=== PATIENT | male | born 1955 | race Caucasian/White ===

== ENCOUNTER 2019-08-12 15:14 | Emergency (ER) | payer OTHER ==
[2019-08-12] MEDS ORDERED: BENZONATATE 100 MG CAP PO ONE (15:56)
[2019-08-12] MEDS ORDERED: NA CHLORIDE 0.9% 1,000 ML ONE (15:56)
[2019-08-12] MEDS ORDERED: IPRATROPIUM BROM 0.5MG/2.5ML ONE (15:56)
[2019-08-12] MEDS ORDERED: ALBUTEROL 2.5 MG/3 ML NEB SOL ONE (15:56)
[2019-08-12 16:15] LABS: Absolute Lymphocytes (CBC) 1.6 K/uL (0.7-4.9); Basophils % 0.3 % (0-1.3); Hematocrit 43.3 % (39.6-49.0); Lymphocytes % 16.8 % (15.3-44.8); MPV 8.7 fL (7.6-11.3); RBC Red Blood Cell Count 4.76 M/uL (4.33-5.43)
[2019-08-12 16:21] LABS: Protime INR 0.89
--- NOTE | 2019-08-12 16:49 | RAD REPORT ---
EXAM DESCRIPTION: RAD - Chest Pa And Lat (2 Views) - 08/12/2019 4:40 pm CLINICAL HISTORY: Cough;Chest pain Chest pain. COMPARISON: <Comparisons> FINDINGS: The lungs are emphysematous but clear. The heart is upper limit of normal in size. No disp laced fractures. IMPRESSION: Mild COPD.
[2019-08-12 16:51] LABS: ALT/SGPT 39 U/L (12-78); AST/SGOT 20 U/L (15-37); Albumin 3.7 g/dL (3.4-5.0); Alkaline Phosphatase 94 U/L (45-117); BUN Blood Urea Nitrogen 28 mg/dL (7-18); Bicarbonate 29 mmol/L (21-32); Bilirubin Direct 0.1 mg/dL (0-0.2); Bilirubin Total 0.3 mg/dL (0.2-1.0); Glucose Level 97 mg/dL (74-106); NT PRO-BNP 24 pg/mL (<125); Potassium 4.1 mmol/L (3.5-5.1); Protein, Total 6.6 g/dL (6.4-8.2); Sodium Level 143 mmol/L (136-145); Troponin (Emerg Dept Use Only) < 0.02 ng/mL (0.0-0.045)
--- NOTE | 2019-08-12 17:01 | ER ---
Nurse's Notes [facility] Name: Steven Barraza Age: 63 yrs Sex: Male : 1955 Arrival Date: 08/12/2019 Time: 15:16 Bed 26 Private MD: Unknown, Unknown Diagnosis: Chronic obstructive pulmonary disease with acute lower respiratory infection Presentation: 08/12 15:18 Presenting complaint: Productive cough with yellow mucus, pain with cough, and sinus hb congestion x 3 weeks, SOB and worsening cough over last 2 days. Transition of care: patient was not received from another setting of care. Onset of symptoms was July 2019. Risk Assessment: Do you want to hurt yourself or someone else? Patient reports no desire to harm self or others. Initial Sepsis Screen: Does the patient meet any 2 criteria? No. Patient's initial sepsis screen is negative. Does the patient have a suspected source of infection? No. Patient's initial sepsis screen is negative. Care prior to arrival: None. 15:18 Method Of Arrival: Ambulatory hb 15:18 Acuity: JUAN MANUEL 3 hb Historical: - Allergies: 15:22 No Known Allergies; hb - Home Meds: 15:22 None [Active]; hb - PMHx: 15:22 None; hb - PSHx: 15:22 None; hb - Immunization history:: Adult Immunizations up to date. - Social history:: Smoking status: Patient/guardian denies using tobacco. - Ebola Screening: : No symptoms or risks identified at this time. Screenin:00 Abuse screen: Denies threats or abuse. Denies injuries from another. Nutritional mg2 screening: No deficits noted. Tuberculosis screening: No symptoms or risk factors identified. Fall Risk IV access (20 points). Assessment: 16:07 General: Appears in no apparent distress. comfortable, Behavior is calm, cooperative. mg2 Pain: Complains of pain in chest Pain does not radiate. Pain currently is 3 out of 10 on a pain scale. Quality of pain is described as aching, Pain began gradually, 1 month ago. Neuro: Level of Consciousness is awake, alert, obeys commands, Oriented to person, place, time, situation. Cardiovascular: Capillary refill < 3 seconds Patient's skin is warm and dry. Respiratory: Reports cough that is Airway is patent Respiratory effort is even, unlabored, Respiratory pattern is regular, symmetrical. GI: No signs and/or symptoms were reported involving the gastrointestinal system. : No signs and/or symptoms were reported regarding the genitourinary system. EENT: No signs and/or symptoms were reported regarding the EENT system. Derm: Skin is intact, is healthy with good turgor, Skin is pink, warm \T\ dry. normal. Musculoskeletal: Circulation, motion, and sensation intact. Capillary refill < 3 seconds. 17:28 Reassessment: Patient appears in no apparent distress at this time. Patient is alert, mg2 oriented x 3, equal unlabored respirations, skin warm/dry/pink. Patient states feeling better. Vital Signs: 15:21 BP 169 / 79; Pulse 102; Resp 20; Temp 97.9; Pulse Ox 100% on R/A; Weight 77.11 kg; hb Height 5 ft. 5 in. (165.10 cm); Pain 5/10; 16:30 BP 141 / 72; Pulse 100; Resp 18; Temp 98; Pulse Ox 100% on R/A; mg2 16:30 BP 140 / 78; Pulse 101; Resp 18; Temp 98; Pulse Ox 100% on R/A; Pain 0/10; mg2 15:21 Body Mass Index 28.29 (77.11 kg, 165.10 cm) hb ED Course: 15:16 Patient arrived in ED. as 15:17 Unknown, Unknown is Private Physician. as 15:20 Triage completed. hb 15:21 Arm band placed on. hb 15:22 Arpit Johnson PA is PHCP. cp 15:22 Venkatesh Ngo MD is Attending Physician. cp 15:28 Garrison Farley, MILEY is Primary Nurse. mg2 15:36 EKG done, by piano technician. reviewed by Arpit ENGLE. sm3 16:00 No provider procedures requiring assistance completed. Inserted saline lock: 20 gauge mg2 in right forearm, using aseptic technique. Blood collected. Patient maintains SpO2 saturation greater than 95% on room air. 16:16 Patient has correct armband on for positive identification. monitoring and evaluation advisor on. Pulse mg2 ox on. Door closed. Warm blanket given. 16:42 XRAY Chest Pa And Lat (2 Views) In Process Unspecified. EDMS 17:28 IV discontinued, intact, bleeding controlled, No redness/swelling at site. Pressure mg2 dressing applied. Administered Medications: 16:05 Drug: Tessalon Perle 200 mg Route: PO; mg2 17:08 Follow up: Response: No adverse reaction; Marked relief of symptoms mg2 16:05 Drug: NS 0.9% 1000 ml Route: IV; Rate: 1000 ml/hr; Site: right forearm; mg2 17:08 Follow up: Response: No adverse reaction; IV Status: Completed infusion; IV Intake: mg2 1000ml 16:06 Drug: Albuterol - atroVENT (3:1) (2.5 mg - 0.5 mg) 3 ml Route: Nebulizer; mg2 17:09 Follow up: Response: No adverse reaction mg2 Intake: 17:08 IV: 1000ml; Total: 1000ml. mg2 Outcome: 17:00 Discharge ordered by MD. cp 17:28 Discharged to home ambulatory. mg2 17:28 Condition: stable 17:28 Discharge instructions given to patient, Instructed on discharge instructions, follow up and referral plans. medication usage, Demonstrated understanding of instructions, follow-up care, medications, Prescriptions given X 3. 17:29 Patient left the ED. mg2 Signatures: Dispatcher [employer] EDMS Didi Mchugh as Arpit Johnson PA PA cp Corine Peacock, MILEY RN Garrison Arteaga RN RN mg2 Tami Dasilva sm3 Corrections: (The following items were deleted from the chart) 15:21 15:18 Presenting complaint: Productive cough with yellow mucus, pain with cough, and hb sinus congestin x 3 weeks, worse over last 2 days. hb
--- NOTE | 2019-08-12 17:01 | EDPHYS ---
Physician Documentation [facility] Name: Steven Barraza Age: 63 yrs Sex: Male : 1955 Arrival Date: 08/12/2019 Time: 15:16 Bed 26 Private MD: Unknown, Unknown ED Physician Venkatesh Ngo HPI: 08/12 15:45 This 63 yrs old Male presents to ER via Ambulatory with complaints of Cough, cp Chest Pain. 15:45 The patient or guardian reports cough, that is constant, with productive sputum, that cp is yellow. 15:45 Onset: The symptoms/episode began/occurred 3 week(s) ago. Severity of symptoms: in the emergency department the symptoms are unchanged. Associated signs and symptoms: Pertinent positives: chest pain, with cough, Pertinent negatives: diarrhea, fever, vomiting. Historical: - Allergies: 15:22 No Known Allergies; hb - Home Meds: 15:22 None [Active]; hb - PMHx: 15:22 None; hb - PSHx: 15:22 None; hb - Immunization history:: Adult Immunizations up to date. - Social history:: Smoking status: Patient/guardian denies using tobacco. - Ebola Screening: : No symptoms or risks identified at this time. ROS: 15:50 Constitutional: Negative for body aches, chills, fever, poor PO intake. cp 15:50 Eyes: Negative for injury, pain, redness, and discharge. cp 15:50 Cardiovascular: Positive for chest pain, with cough, Negative for edema, palpitations. cp 15:50 ENT: Negative for drainage from ear(s), ear pain, sore throat, difficulty swallowing, cp difficulty handling secretions. 15:50 Respiratory: Positive for cough, Negative for shortness of breath, wheezing. 15:50 Abdomen/GI: Negative for abdominal pain, vomiting, diarrhea, constipation. 15:50 Back: Negative for pain at rest, pain with movement, radiated pain. 15:50 : Negative for urinary symptoms. 15:50 Neuro: Negative for altered mental status, headache, weakness. 15:50 All other systems are negative. Exam: 15:40 ECG was reviewed by the Attending Physician. cp 15:50 Constitutional: The patient appears in no acute distress, alert, awake, cp non-diaphoretic, non-toxic, well developed, well nourished. 15:50 Head/Face: Normocephalic, atraumatic. cp 15:50 Eyes: Periorbital structures: appear normal, Conjunctiva: normal, no exudate, no injection, Sclera: no appreciated abnormality, Lids and lashes: appear normal, bilaterally. 15:50 ENT: External ear(s): are unremarkable, Ear canal(s): are normal, clear, TM's: bulging, is not appreciated, bilaterally, dullness, bilaterally, erythema, is not appreciated, bilaterally, Nose: is normal, Mouth: Lips: moist, Oral mucosa: pink and intact, moist, Posterior pharynx: is normal, airway is patent, no erythema, no exudate. 15:50 Neck: ROM/movement: is normal, is supple, without pain, no range of motions limitations, no meningismus, no nuchal rigidity, Lymph nodes: no appreciated lymphadenopathy. 15:50 Chest/axilla: Inspection: normal, Palpation: is normal, no crepitus, no tenderness. 15:50 Cardiovascular: Rate: tachycardic, Rhythm: regular, Edema: is not appreciated, JVD: is not appreciated. 15:50 Respiratory: the patient does not display signs of respiratory distress, Respirations: normal, no use of accessory muscles, no retractions, no splinting, no tachypnea, labored breathing, is not present, Breath sounds: bronchial sounds, that are mild, are heard diffusely, decreased breath sounds, are not appreciated, stridor, is not appreciated, wheezing: is not appreciated. 15:50 Abdomen/GI: Inspection: abdomen appears normal, Palpation: abdomen is soft and non-tender, in all quadrants. 15:50 Back: pain, is absent, ROM is normal. cp 15:50 Skin: no rash present. 15:50 Neuro: Orientation: to person, place \T\ time. Mentation: is normal, Motor: moves all fours, strength is normal. Vital Signs: 15:21 BP 169 / 79; Pulse 102; Resp 20; Temp 97.9; Pulse Ox 100% on R/A; Weight 77.11 kg; hb Height 5 ft. 5 in. (165.10 cm); Pain 5/10; 16:30 BP 141 / 72; Pulse 100; Resp 18; Temp 98; Pulse Ox 100% on R/A; mg2 16:30 BP 140 / 78; Pulse 101; Resp 18; Temp 98; Pulse Ox 100% on R/A; Pain 0/10; mg2 15:21 Body Mass Index 28.29 (77.11 kg, 165.10 cm) hb MDM: 15:35 Patient medically screened. cp 16:00 Differential Diagnosis: Bronchitis Influenza Viral Syndrome Pneumonia. cp 16:58 Data reviewed: vital signs, nurses notes, lab test result(s), EKG, radiologic studies, cp plain films, and as a result, I will discharge patient. 17:00 Test interpretation: by ED physician or midlevel provider: ECG, plain radiologic cp studies. 17:00 Counseling: I had a detailed discussion with the patient and/or guardian regarding: the cp historical points, exam findings, and any diagnostic results supporting the discharge/admit diagnosis, lab results, radiology results, to return to the emergency department if symptoms worsen or persist or if there are any questions or concerns that arise at home. Response to treatment: the patient's symptoms have markedly improved after treatment, and as a result, I will discharge patient. ED course: VSS. Will treat outpatient with Z-[place] since symptoms have been for past 3 weeks. Will discharge to home for continued monitoring. 08/12 15:43 Order name: Basic Metabolic Panel; Complete Time: 16:57 cp 08/12 16:57 Interpretation: Normal except: CL 110; BUN 28; GFR 76. 08/12 15:43 Order name: CBC with Diff; Complete Time: 16:52 08/12 16:52 Interpretation: Reviewed. 08/12 15:43 Order name: LFT's; Complete Time: 16:57 08/12 15:43 Order name: Magnesium; Complete Time: 16:57 08/12 15:43 Order name: NT PRO-BNP; Complete Time: 16:57 08/12 15:43 Order name: PT-INR; Complete Time: 16:52 08/12 16:52 Interpretation: Reviewed. 08/12 15:43 Order name: Troponin (emerg Dept Use Only); Complete Time: 16:57 08/12 16:57 Interpretation: TROPED < 0.02; Reviewed. 08/12 15:43 Order name: Strep; Complete Time: 16:52 08/12 16:52 Interpretation: Reviewed. cp 08/12 15:43 Order name: Influenza Screen (a \T\ B); Complete Time: 16:52 cp 08/12 16:52 Interpretation: Reviewed. cp 08/12 16:08 Order name: XRAY Chest Pa And Lat (2 Views); Complete Time: 16:57 cp 08/12 16:26 Order name: Throat Culture EDMS 08/12 15:43 Order name: EKG; Complete Time: 15:44 cp 08/12 15:43 Order name: Cardiac monitoring; Complete Time: 15:59 cp 08/12 15:43 Order name: EKG - Nurse/Tech; Complete Time: 15:59 cp 08/12 15:43 Order name: IV Saline Lock; Complete Time: 15:59 cp 08/12 15:43 Order name: Labs collected and sent; Complete Time: 15:59 cp 08/12 15:43 Order name: O2 Per Protocol; Complete Time: 15:59 cp 08/12 15:43 Order name: O2 Sat Monitoring; Complete Time: 15:59 cp EC:40 Rate is 92 beats/min. Rhythm is regular. CO interval is normal. QRS interval is normal. cp QT interval is normal. T waves are Inverted in leads V5, V6. Interpreted by me. Reviewed by me. Administered Medications: 16:05 Drug: Tessalon Perle 200 mg Route: PO; mg2 17:08 Follow up: Response: No adverse reaction; Marked relief of symptoms mg2 16:05 Drug: NS 0.9% 1000 ml Route: IV; Rate: 1000 ml/hr; Site: right forearm; mg2 17:08 Follow up: Response: No adverse reaction; IV Status: Completed infusion; IV Intake: mg2 1000ml 16:06 Drug: Albuterol - atroVENT (3:1) (2.5 mg - 0.5 mg) 3 ml Route: Nebulizer; mg2 17:09 Follow up: Response: No adverse reaction mg2 Disposition: 08/13 06:54 Co-signature as Attending Physician, Venkatesh Ngo MD I agree with the assessment and kdr plan of care. Disposition: 08/12/19 17:00 Discharged to Home. Impression: Chronic obstructive pulmonary disease with acute lower respiratory infection. - Condition is Stable. - Discharge Instructions: Acute Bronchitis, Adult, Chronic Obstructive Pulmonary Disease. - Prescriptions for Tessalon Perles 100 mg Oral Capsule - take 2 capsule by ORAL route every 8 hours As needed; 20 capsule. Zithromax Z- [place] 250 mg Oral Tablet - take 1 tablet by ORAL route as directed for 5 days Day 1 - take two (2) tablets one time. Day 2, 3, 4 , 5 take one (1) tablet once daily.; 6 tablet. Albuterol Sulfate 90 mcg/actuation - inhale 1-2 puff by INHALATION route every 4-6 hours; 1 Inhaler. - Medication Reconciliation Form, Thank You Letter, Antibiotic Education, Prescription Opioid Use form. - Follow up: Private Physician; When: 2 - 3 days; Reason: Worsening of condition. - Problem is new. - Symptoms have improved. Signatures: Dispatcher [employer] EDMS Venkatesh Ngo MD MD [facility] Arpit Johnson PA PA cp Corine Peacock RN RN Garrison Farley RN RN mg2 Corrections: (The following items were deleted from the chart) 08/12 17:29 17:00 08/12/2019 17:00 Discharged to Home. Impression: Chronic obstructive pulmonary mg2 disease with acute lower respiratory infection. Condition is Stable. Forms are Medication Reconciliation Form, Thank You Letter, Antibiotic Education, Prescription Opioid Use. Follow up: Private Physician; When: 2 - 3 days; Reason: Worsening of condition. Problem is new. Symptoms have improved. cp
[2019-08-12 18:37] VITALS: O2SAT 100
[2019-08-12 18:39] VITALS: BP 140/78; TEMP 98
--- NOTE | 2019-08-13 07:24 | EKG ---
Test Date: 2019-08-12 Test Time: 15:30:02 Cavity Pump Operator: SOPHIA MEASUREMENT RESULTS: Intervals: Rate: 92 NC: 154 QRSD: 76 QT: 332 QTc: 410 [place]: P: 69 NC: 154 QRS: 39 T: 40 INTERPRETIVE STATEMENTS: Normal sinus rhythm Normal ECG No previous ECG available for comparison Electronically Signed On 08-13-19 07:22:14 CDT by Dustin James
== END 2019-08-12 17:29 | disposition home or self-care (01) ==
LOC: ER 15:14
DX: J44.0 Chronic obstructive pulmonary disease with (acute) lower respiratory infection (principal)
CPT/HCPCS: 93005; 87070; 85025; 80048; 36415; 83735; 85610; 80076; 87081; 84484; 83880; 87804 ×2; 71046; 94640; 96360; 99285; J7030